=== PATIENT | male | born 1955 | race Caucasian/White ===

== ENCOUNTER 2018-02-15 07:42 | Emergency (ER) | END 2018-02-15 11:30 | disposition home or self-care (01) ==

== ENCOUNTER 2018-12-31 07:29 | Observation (INO) | payer OTHER ==
[2018-12-30 17:35] VITALS: BMI 28.3
[~2018-12-31] VITALS: Ht 162.6 cm; Wt 80.0 kg
[2018-12-31] VITALS (31 sets, daily range): BP systolic 120–162; BP diastolic 58–83; PULSE 59–83; RESP 15–41; Ht 162.6 cm; Wt 80.0 kg
[~2018-12-31 07:29] MED LIST: ACET500C5 PO; AMLO-147 PO; AMOX1TAB9 PO; CEFAZOLIN 2 GM/50 ML (PMX) 50 ML IVPB SCH; CIPR500T4 PO; FINA5TAB4 PO; MITOMYCIN 40 MG VIAL IS SCH; NITR-58 PO; TAMS-14 PO
[2018-12-31] MEDS ORDERED: DESFLURANE 15 MIN ONE (08:19)
[2018-12-31] MEDS ORDERED: PROPOFOL 20 ML ONE (08:19)
[2018-12-31] MEDS ORDERED: CEFAZOLIN 1 GM INJ ONE (08:19)
[2018-12-31] MEDS ORDERED: MIDAZOLAM 1 MG/ML 2 ML INJ ONE (08:19)
[2018-12-31] MEDS ORDERED: LIDOCAINE 2% (SDV) 5 ML INJ ONE (08:19)
[2018-12-31] MEDS ORDERED: FENTAnyl 50 MCG/ML VIAL ONE ×2 (08:19→10:04)
[2018-12-31] MEDS ORDERED: HYDROmorphONE 1 MG/5 ML IV SYRINGE IV PRN ×3 (08:30)
[2018-12-31] MEDS ORDERED: MEPERIDINE 25 MG INJ IV PRN (08:30)
[2018-12-31] MEDS ORDERED: LABETALOL HCL 20MG INJ IV PRN (08:30)
[2018-12-31] MEDS ORDERED: ONDANSETRON 4 MG INJ IV PRN (08:30)
[2018-12-31] MEDS ORDERED: OXYCODONE/ACETAMINOPHEN (5/325) TAB PO PRN ×2 (08:30)
[2018-12-31] MEDS ORDERED: hydrALAzine 20 MG INJ IV PRN (08:30)
[2018-12-31] MEDS ORDERED: CEFTRIAXONE 2 GM/50 ML (PMX) 50 ML IVPB STA (09:23)
[2018-12-31] MEDS ORDERED: ONDANSETRON 4 MG INJ ONE (09:27)
[2018-12-31] MEDS ORDERED: DEXAMETHASONE 4 MG/ML 5 ML INJ ONE (09:27)
[2018-12-31] MEDS ORDERED: FAMOTIDINE 20 MG INJ ONE (09:29)
[2018-12-31] MEDS ORDERED: BELLADONNA ALK/OPIUM SUPP PR SCH (10:00)
[2018-12-31] MEDS ORDERED: HYDROCODONE/APAP (5/325) TAB PO PRN (11:00)
[2018-12-31] MEDS ORDERED: MAGNESIUM HYDROXIDE 30ML CUP PO PRN (11:00)
[2018-12-31] MEDS ORDERED: CEFTRIAXONE 1 GM/50 ML (PMX) 50 ML IVPB ONE (11:00)
[2018-12-31] MEDS ORDERED: morphine SULFATE/PF (2 MG/2 ML) SYG IV PRN (11:00)
[2018-12-31] MEDS ORDERED: BELLADONNA ALK/OPIUM SUPP PR PRN (11:00)
[2018-12-31] MEDS: DEXTROSE 5%-0.45% NACL 1,000 ML IV SCH (14:56)
[2018-12-31] MEDS: DOCUSATE SODIUM 100 MG CAP PO SCH (20:19)
[2018-12-31] MEDS ORDERED: TAMSULOSIN (SR) 0.4 MG CAP PO SCH (21:00)
[2019-01-01] MEDS: DEXTROSE 5%-0.45% NACL 1,000 ML IV SCH ×2 (00:47→06:27)
[2019-01-01 02:00] VITALS: BP 115/63; PULSE 71; RESP 18
[2019-01-01 08:00] VITALS: BP 127/67; PULSE 66; RESP 18
[2019-01-01] MEDS: DOCUSATE SODIUM 100 MG CAP PO SCH (08:58)
[2019-01-01] MEDS ORDERED: CEFTRIAXONE 1 GM/NS 50 ML IVPB SCH (09:00)
[2019-01-01] MEDS ORDERED: FINASTERIDE 5 MG TAB PO SCH (09:00)
[2019-01-01] MEDS ORDERED: AMLODIPINE 10 MG TAB PO SCH (09:00)
== END 2019-01-01 11:35 | disposition home or self-care (01) ==
LOC: SDS 07:29 → REC 11:01 → PP2 13:50
PROVIDERS: ADMIT Urology; ATTEND Urology
DX: C67.2 Malignant neoplasm of lateral wall of bladder (principal); N30.20 Other chronic cystitis without hematuria; R33.9 Retention of urine, unspecified
CPT/HCPCS: 88305; 88341; 88342; 99217; G0378; J0690; J0696; J1100; J2250; J2405; J3010; J7042; J9280

== ENCOUNTER 2019-01-14 11:08 | Observation (INO) | payer OTHER ==
[2019-01-13 16:23] VITALS: BMI 30.1
[2019-01-14] VITALS (20 sets, daily range): BP systolic 123–157; BP diastolic 65–80; PULSE 57–85; RESP 11–20; Ht 165.1 cm; Wt 79.0 kg
[~2019-01-14] VITALS: Ht 165.1 cm; Wt 79.0 kg
[~2019-01-14 11:08] MED LIST changes: -ACET500C5 PO; -CEFAZOLIN 2 GM/50 ML (PMX) 50 ML IVPB SCH; -CIPR500T4 PO; +ERTAPENEM SODIUM 1 GM in SOD CHLORIDE 0.9% 100 ML IVPB ONE; -MITOMYCIN 40 MG VIAL IS SCH
[2019-01-14] MEDS ORDERED: LACTATED RINGER'S 1,000 ML IV SCH (12:30)
[2019-01-14] MEDS ORDERED: MEPERIDINE 25 MG INJ IV PRN (13:30)
[2019-01-14] MEDS ORDERED: DIPHENHYDRAMINE 50 MG INJ IV PRN (13:30)
[2019-01-14] MEDS ORDERED: HYDROmorphONE 1 MG/5 ML IV SYRINGE IV PRN ×3 (13:30)
[2019-01-14] MEDS ORDERED: EPHEDrine 25 MG/5 ML SYG IV PRN (13:30)
[2019-01-14] MEDS ORDERED: PROCHLORPERAZINE 10 MG INJ IV PRN (13:30)
[2019-01-14] MEDS ORDERED: hydrALAzine 20 MG INJ IV PRN (13:30)
[2019-01-14] MEDS ORDERED: ONDANSETRON 4 MG INJ IV PRN (13:30)
[2019-01-14] MEDS ORDERED: LABETALOL HCL 20MG INJ IV PRN (13:30)
[2019-01-14] MEDS ORDERED: FENTAnyl 50 MCG/ML VIAL IV PRN (13:30)
[2019-01-14] MEDS ORDERED: MIDAZOLAM 1 MG/ML 2 ML INJ ONE (13:48)
[2019-01-14] MEDS ORDERED: ONDANSETRON 4 MG INJ ONE (14:07)
[2019-01-14] MEDS ORDERED: PROPOFOL 20 ML ONE ×2 (14:07)
[2019-01-14] MEDS ORDERED: LIDOCAINE 2% (SDV) 5 ML INJ ONE (14:07)
[2019-01-14] MEDS ORDERED: DEXAMETHASONE 4 MG/ML 5 ML INJ ONE (14:07)
[2019-01-14] MEDS ORDERED: EPHEDrine 25 MG/5 ML SYG ONE (14:08)
[2019-01-14] MEDS ORDERED: ESMOLOL 10 ML ONE (14:37)
[2019-01-14] MEDS ORDERED: BELLADONNA ALK/OPIUM SUPP PR SCH (15:00)
[2019-01-14] MEDS ORDERED: DEXTROSE 5%-0.45% NACL 1,000 ML IV SCH (15:03)
[2019-01-14] MEDS ORDERED: BELLADONNA ALK/OPIUM SUPP PR PRN (15:30)
[2019-01-14] MEDS ORDERED: FINASTERIDE 5 MG TAB PO ONE (15:30)
[2019-01-14] MEDS ORDERED: morphine 2 MG INJ IV PRN (15:30)
[2019-01-14] MEDS ORDERED: HYDROCODONE/APAP (5/325) TAB PO PRN (15:30)
[2019-01-14] MEDS ORDERED: MAGNESIUM HYDROXIDE 30ML CUP PO PRN (15:30)
[2019-01-14] MEDS ORDERED: ACETAMINOPHEN 325 MG TAB PO PRN (15:30)
[2019-01-14] MEDS: CIPROFLOXACIN 500 MG TAB PO SCH (17:34)
[2019-01-14] MEDS: DOCUSATE SODIUM 100 MG CAP PO SCH (20:45)
[2019-01-14] MEDS ORDERED: TAMSULOSIN (SR) 0.4 MG CAP PO SCH (21:00)
[2019-01-15 01:50] VITALS: BP 122/61; PULSE 60; RESP 16
[2019-01-15] MEDS: CIPROFLOXACIN 500 MG TAB PO SCH (06:12)
[2019-01-15 08:23] VITALS: BP 121/61; PULSE 60; RESP 18
[2019-01-15] MEDS: DOCUSATE SODIUM 100 MG CAP PO SCH (08:51)
[2019-01-15] MEDS ORDERED: AMLODIPINE 10 MG TAB PO SCH (09:00)
== END 2019-01-15 10:39 | disposition home or self-care (01) ==
LOC: SDS 11:08 → REC 15:08 → MS1 17:00
PROVIDERS: ADMIT Urology; ATTEND Urology
DX: C61 Malignant neoplasm of prostate (principal); R33.9 Retention of urine, unspecified
CPT/HCPCS: 52601; 87086; 88305; J1100; J1170; J2250; J2405; J3010; J7042; J7120; Z7500; Z7512; Z7610; G0378